=== PATIENT | female | born 1980 | race Caucasian/White ===

== ENCOUNTER 2018-12-21 19:02 | Emergency (ER) | payer OTHER, SELFPAY ==
[2018-12-21 19:10] VITALS: BP 144/87; PULSE 87; RESP 16; TEMP 36.9; O2SAT 100
--- NOTE | 2018-12-21 19:10 | ED_ITS ---
HPI - Animal Bite General Chief Complaint: Extremity Injury, Upper Stated Complaint: bitten by bat Time Seen by Provider: 12/21/18 19:04 Source: patient Mode of arrival: Ambulatory Limitations: no limitations History of Present Illness HPI narrative: 38F non smoker with benign medical history presents with a chief complaint of a bat bite to her left index finger earlier today. The patient works in a voluntary capacity for [employer] and was contacted about an injured bat, she responded to the scene and was unboxing the bat when it had climbed up the side of the box and bit her on the tip of her finger. The bat is in the possession of the patient. Her tetanus is current. She received a series of rabies vaccinations and immune globulin in 1999 when she was working for the [employer]. She is otherwise well and free of complaint. She lives locally, and has local PCP MD complaint: animal bite Onset (ago): hour(s) Animal: bat Description of animal: wild animal Mechanism: bite Location - Extremities: Left: hand Context: provoked Associated symptoms: none Treatments prior to arrival: irrigation and pressure Related Data Patient tetanus UTD: Yes Home Medications Medication Instructions Recorded Confirmed No Known Home Medications 12/27/17 12/27/17 Allergies Allergy/AdvReac Type Severity Reaction Status Date / Time No Known Drug Allergies Allergy Unverified 12/27/17 09:23 Review of Systems Constitutional Constitutional: Denies chills, Denies fatigue, Denies fever(s), Denies frequent falls, Denies lethargy and Denies weakness Eyes Eyes: Denies change in vision, Denies eye discharge, Denies irritation and Denies loss of vision ENT Ears, Nose, Mouth, and Throat: Denies change in voice, Denies dizziness, Denies neck pain, Denies sore throat and Denies throat swelling Cardiovascular Cardiovascular: Denies chest pain, Denies irregular heart rhythm, Denies lightheadedness, Denies palpitations, Denies dyspnea, Denies dyspnea on exertion and Denies orthopnea Respiratory Respiratory: Denies cough, Denies dyspnea, Denies dyspnea on exertion and Denies wheezing Gastrointestinal Gastrointestinal: Denies abdominal pain, Denies change in bowel habits, Denies diarrhea, Denies nausea and Denies vomiting Genitourinary Genitourinary: Denies hematuria, Denies flank pain, Denies urinary incontinence and Denies urinary urgency Musculoskeletal Musculoskeletal: Denies back pain, Denies muscle weakness, Denies neck pain, Denies numbness and Denies tingling Integumentary/Breasts Skin/Breast: Denies pruritus, Denies erythema, Denies rash and Denies wounds Neurologic Neurologic: Denies behavioral changes, Denies confusion, Denies dizziness, Denies frequent falls, Denies loss of vision, Denies numbness, Denies tingling and Denies weakness Psychiatric Psychiatric: Denies anxiety, Denies behavioral changes, Denies confusion, Denies depression, Denies homicidal ideation and Denies suicidal ideation Endocrine Endocrine: Denies fatigue, Denies flushing and Denies palpitations Hematologic/Lymphatic Hematologic/Lymphatic: Denies easy bruising Allergic/Immunologic Allergic/Immunologic: Denies urticaria, Denies throat swelling and Denies wheezing [facility] Medical History Abnormal Pap smear of cervix (Chronic) Anxiety (Chronic) Carpal tunnel syndrome (Chronic) Depression (Resolved 09/2015) HPV in female (Resolved) Hypothyroidism (Chronic) Surgical History History of colposcopy (Resolved) Family History (Updated 11/26/17 @ 11:00 by Jessenia Connell LPN) Father No problems noted. Mother No problems noted. Grandfather No problems noted. Grandmother Cancer Social History Smoking Status: Current every day smoker Tobacco: How many years used: 20 quit status: considering quitting second hand exposure: Yes (my smokes) alcohol intake: former substance use type: does not use Family History Father No problems noted. Mother No problems noted. Grandfather No problems noted. Grandmother Cancer Social History Smoking Status: Current every day smoker Tobacco: How many years used: 20 quit status: considering quitting second hand exposure: Yes (my smokes) alcohol intake: former substance use type: does not use Exam Narrative Exam Narrative: GEN: AOx3 and in mild distress EYES: Pupils are equal, round, and reactive to light and accommodation. Extraoccular muscles are intact bilaterally. There is no subconjunctival hemorrhage or exudate. CHEST: Lungs are clear to auscultation bilaterally and free of wheezes, rales, or rhonchi. Heart rate is regular rhythm, there are no murmurs, clicks, rubs, or gallops. There is no chest wall tenderness. ABD: Abdomen is soft and nontender. There is no guarding or rebound. Bowel sounds are normal in all 4 quadrants. There is no mass or organomegaly. EXT: Full painless ROM of all extremities with no loss of sensation or strength. SKIN: Warm, pink, and dry. No erythema or rash, no bite noted Initial Vital Signs Initial Vital Signs: Vital Signs Temperature 98.5 F 12/21/18 19:10 Pulse Rate 87 12/21/18 19:10 Respiratory Rate 16 12/21/18 19:10 Blood Pressure 144/87 H 12/21/18 19:10 Pulse Oximetry 100 12/21/18 19:10 Course Orders Ordered: Discontinued Medications Rabies Vaccine (Rabavert) 2.5 units IM .ONCE ONE Stop: 12/21/18 19:22 Last Admin: 12/21/18 19:42 Dose: 2.5 units Documented by: ROSAMARIA Consultations Consultation #1: Discussion with [facility] physicians sales representative education courses, she took down patient info. States no IG needed, but full course of vaccines needed. She says state will want the bat for testing and someone will contact patient tomorrow. Patient told all of this info. Vital Signs Vital signs: Vital Signs - 8 hr 12/21/18 19:10 12/21/18 20:02 Temperature 98.5 F Pulse Rate 87 72 Respiratory Rate 16 15 Blood Pressure 144/87 H 143/83 H Pulse Oximetry 100 100 Discharge Plan Departure Patient Disposition: Home Clinical Impression: Bat bite of finger Qualifiers: Encounter type: initial encounter Qualified Code(s): S61.259A - Open bite of unspecified finger without damage to nail, initial encounter Discharge Date/Time: 12/21/18 20:03 Instructions: How to Care for a Wild Animal Bite Activity Restrictions/Additional Instructions: *You have been diagnosed with [bat bite on finger] *What to do: *I have been in close contact with the [facility] Department, they will contact you tomorrow at the phone number provided. *You will need a series of Rabies vaccinations *Day 0 - 12/21 *Day 3 - Sunday 12/24 *Day - 12/28 *Day - 01/04 The state hopes to test the bat, they will call you tomorrow to help coordinate this. If the bat is tested and rabies is ruled out then you will likely be able to stop the series of vaccinations at that point, but please return to [facility] as outline above unless notified by us or the health department Prescriptions: No Action No Known Home Medications RF: 0 Referrals: Mabel Aldrich PA-C [Primary Care Provider] -
[2018-12-21] MEDS: RABIES VACCINE (RABAVERT) 2.5 UNITS SYRINGE IM (19:42)
--- NOTE | 2018-12-21 20:00 | PC.NURSE ---
Pt transports wounded animal to [facility] pt was given a injured baby bat in a box. Pt picked up box and bat brushed fingers. Pt wasn't wearing gloves.
[2018-12-21 20:02] VITALS: BP 143/83; PULSE 72; RESP 15; O2SAT 100
== END 2018-12-21 20:03 | disposition home or self-care (01) ==
PROVIDERS: Emergency Provider Emergency Medicine; Family Provider Naturopath; PCP Physician Assistant
DX: S61.259A Open bite of unspecified finger without damage to nail, initial encounter (principal)
CPT/HCPCS: 90471; 90675; 99282

== ENCOUNTER 2018-12-24 22:18 | Emergency (ER) | payer OTHER, SELFPAY ==
[2018-12-24 22:19] VITALS: BP 128/85; PULSE 81; RESP 16; TEMP 36.7; O2SAT 100; BMI 22.7
--- NOTE | 2018-12-24 22:46 | ED.RECABL ---
HPI - Recheck/Abnormal Lab/Rx General Chief Complaint: Recheck/Abnormal Lab/Rx Stated Complaint: follow up for 2nd rabbies shot Time Seen by Provider: 12/24/18 22:21 Source: patient Mode of arrival: Ambulatory Limitations: no limitations History of Present Illness HPI narrative: 38-year-old female daily smoker returns to the emergency department for her 2nd round of rabies vaccine. She was bit on her left index finger a few days ago by a bat and seen and evaluated here. She had been given her 1st vaccine, she has already the immunoglobulin. She denies any symptoms and feels at her baseline. She had been in contact with the [facility] all day and was told she had 2 options, 1 would be to receive her 2nd shot and then she would do no more. The 2nd option would be to wait until they complete the autopsy of the back tomorrow and wait for the results. She elects to come here and just have it over with. complaint: other Initial visit (ago): day(s) Initial visit for: animal bite Returns today for: needs IV antibiotics Symptoms since prior visit: no new symptoms Context: planned re-check Associated symptoms: none Related Data Home Medications Medication Instructions Recorded Confirmed No Known Home Medications 12/27/17 12/27/17 Allergies Allergy/AdvReac Type Severity Reaction Status Date / Time No Known Drug Allergies Allergy Unverified 12/27/17 09:23 Review of Systems Constitutional Constitutional: Denies chills, Denies fatigue, Denies fever(s), Denies frequent falls, Denies lethargy and Denies weakness Eyes Eyes: Denies change in vision, Denies eye discharge, Denies irritation and Denies loss of vision ENT Ears, Nose, Mouth, and Throat: Denies change in voice, Denies dizziness, Denies neck pain, Denies sore throat and Denies throat swelling Cardiovascular Cardiovascular: Denies chest pain, Denies irregular heart rhythm, Denies lightheadedness, Denies palpitations, Denies dyspnea, Denies dyspnea on exertion and Denies orthopnea Respiratory Respiratory: Denies cough, Denies dyspnea, Denies dyspnea on exertion and Denies wheezing Gastrointestinal Gastrointestinal: Denies abdominal pain, Denies change in bowel habits, Denies diarrhea, Denies nausea and Denies vomiting Genitourinary Genitourinary: Denies hematuria, Denies flank pain, Denies urinary incontinence and Denies urinary urgency Musculoskeletal Musculoskeletal: Denies back pain, Denies muscle weakness, Denies neck pain, Denies numbness and Denies tingling Integumentary/Breasts Skin/Breast: Denies pruritus, Denies erythema, Denies rash and Denies wounds Neurologic Neurologic: Denies behavioral changes, Denies confusion, Denies dizziness, Denies frequent falls, Denies loss of vision, Denies numbness, Denies tingling and Denies weakness Psychiatric Psychiatric: Denies anxiety, Denies behavioral changes, Denies confusion, Denies depression, Denies homicidal ideation and Denies suicidal ideation Endocrine Endocrine: Denies fatigue, Denies flushing and Denies palpitations Hematologic/Lymphatic Hematologic/Lymphatic: Denies easy bruising Allergic/Immunologic Allergic/Immunologic: Denies urticaria, Denies throat swelling and Denies wheezing [facility] Medical History Abnormal Pap smear of cervix (Chronic) Anxiety (Chronic) Carpal tunnel syndrome (Chronic) Depression (Resolved 09/2015) HPV in female (Resolved) Hypothyroidism (Chronic) Surgical History History of colposcopy (Resolved) Family History Father No problems noted. Mother No problems noted. Grandfather No problems noted. Grandmother Cancer Social History Smoking Status: Current every day smoker Tobacco: How many years used: 20 quit status: considering quitting second hand exposure: Yes (my smokes) alcohol intake: former substance use type: does not use Family History Father No problems noted. Mother No problems noted. Grandfather No problems noted. Grandmother Cancer Social History Smoking Status: Current every day smoker Tobacco: How many years used: 20 quit status: considering quitting second hand exposure: Yes (my smokes) alcohol intake: former substance use type: does not use Exam Narrative Exam Narrative: GEN: AOx3 and in mild distress EYES: Pupils are equal, round, and reactive to light and accommodation. Extraoccular muscles are intact bilaterally. There is no subconjunctival hemorrhage or exudate. CHEST: Lungs are clear to auscultation bilaterally and free of wheezes, rales, or rhonchi. Heart rate is regular rhythm, there are no murmurs, clicks, rubs, or gallops. There is no chest wall tenderness. ABD: Abdomen is soft and nontender. There is no guarding or rebound. Bowel sounds are normal in all 4 quadrants. There is no mass or organomegaly. EXT: Full painless ROM of all extremities with no loss of sensation or strength. SKIN: Warm, pink, and dry. No erythema or rash Initial Vital Signs Initial Vital Signs: Vital Signs Temperature 98.1 F 12/24/18 22:19 Pulse Rate 81 12/24/18 22:19 Respiratory Rate 16 12/24/18 22:19 Blood Pressure 128/85 12/24/18 22:19 Pulse Oximetry 100 12/24/18 22:19 Course Orders Ordered: Discontinued Medications Rabies Vaccine (Rabavert) 2.5 units IM .ONCE ONE Stop: 12/24/18 22:22 Vital Signs Vital signs: Vital Signs - 8 hr 12/24/18 22:19 Temperature 98.1 F Pulse Rate 81 Respiratory Rate 16 Blood Pressure 128/85 Pulse Oximetry 100 Discharge Plan Departure Patient Disposition: Home Clinical Impression: Suspected rabies Activity Restrictions/Additional Instructions: *You have been diagnosed with [bat bite, possible rabies exposure] *What to do: *Take medications as directed * per your discussion with [facility] you will need no more rabies shots. *Return to ER if you should have any new, worsening or concerning symptoms Prescriptions: No Action No Known Home Medications RF: 0 Referrals: Mabel Aldrich PA-C [Primary Care Provider] -
[2018-12-24] MEDS: RABIES VACCINE (RABAVERT) 2.5 UNITS SYRINGE IM (23:11)
[2018-12-24 23:24] VITALS: BP 98/84; PULSE 84; RESP 16; O2SAT 99
== END 2018-12-24 23:24 | disposition home or self-care (01) ==
PROVIDERS: Emergency Provider Emergency Medicine; Family Provider Naturopath; PCP Physician Assistant
DX: Z23 Encounter for immunization (principal); S61.259A Open bite of unspecified finger without damage to nail, initial encounter
CPT/HCPCS: 90471; 90675; 99281; 99282

== ENCOUNTER → 2019-12-13 07:10 | Outpatient (CLI) | payer OTHER, SELFPAY ==
[2019-12-13 08:27] LABS: Add Manual Diff / Slide Review NO; Basophils Absolute Auto 0 /uL (0-100); Basophils Percent Auto 0.5 % (0-2); Eosinophils Absolute Auto 300 /uL (0-450); Eosinophils Percent Auto 3.4 % (2-4); Hematocrit 41.2 % (36-46); Hemoglobin 13.7 g/dL (12.0-16.0); Lymphocytes Absolute Auto 2600 /uL (1100-4500); Mean Corpuscular HGB Conc 33.3 % (30-36); Mean Corpuscular Hemoglobin 28.9 PG (26-34); Mean Corpuscular Volume 86.9 fL (80-100); Monocytes Absolute Auto 900 /uL (0-900); Monocytes Percent Auto 11.1 % (3-14); Neutrophils Absolute Auto 4300 /uL (1500-7000); Platelet Count 260 X10^3/uL (150-400); Red Blood Cell Count 4.74 X10^6/uL (4.0-5.2); Red Cell Distribution Width 13.3 % (11.6-14.8); White Blood Cell Count 8.2 X10^3/uL (4.5-11.0)
[2019-12-13 09:21] LABS: Alanine Aminotransferase 10 IU/L (<35); Albumin 4.1 g/dL (3.5-5.0); Albumin Globulin Ratio 1.7 (1.0-2.8); Alkaline Phosphatase 89 U/L (38-126); Aspartate Aminotransferase 17 IU/L (14-36); BUN Creatinine Ratio 11.6 (6-22); Bilirubin Total 0.9 mg/dL (0.2-1.3); Blood Urea Nitrogen 8 mg/dL (7-17); Calcium 9.4 mg/dL (8.4-10.2); Carbon Dioxide 25 mmol/L (22-32); Chloride 106 mmol/L (98-107); Cholesterol 153 mg/dL (140-199); Estimated Glomerular Filt Rate > 60.0 mL/min (>60); Globulin 2.4 g/dL (1.7-4.1); Glucose 82 mg/dL (70-100); HDL Cholesterol 56 mg/dL (40-60); HEMOLYSIS < 15 (0-50); LDL Cholesterol Calculated 84 mg/dL (<100); Sodium 139 mmol/L (137-145); Total Protein 6.5 g/dL (6.3-8.2); Triglycerides 66 mg/dL (35-150)
[2019-12-13 09:30] LABS: Free T4, Direct Thyroxine 1.16 ng/dL (0.78-2.19)
[2019-12-13 09:44] LABS: Thyroid Stimulating Hormone 2.41 uIU/mL (0.47-4.68)
[2019-12-14 08:08] LABS: Thyroid Peroxidase Antibodies <9 IU/mL (0-34)
[2019-12-14 19:00] LABS: Anti Thyroglobulin Antibody <1.0 IU/mL (0.0-0.9)
== END ==
PROVIDERS: Family Provider Naturopath; PCP Naturopath; Referring Provider Naturopath; Visit Provider Naturopath
DX: Z00.00 Encounter for general adult medical examination without abnormal findings (principal); E06.3 Autoimmune thyroiditis
CPT/HCPCS: 36415; 80053; 80061; 84439; 84443; 84481; 85025; 86376; 86800

== ENCOUNTER → 2020-06-13 07:55 | Outpatient (CLI) | payer OTHER, SELFPAY ==
[2020-06-13] MEDS: COVID-19 VACC #1, MRNA(MOD) 100 MCG/0.5 ML VIAL IM (08:00)
== END ==
PROVIDERS: Family Provider Naturopath; PCP Naturopath; Visit Provider Internal Medicine
DX: Z23 Encounter for immunization (principal)
CPT/HCPCS: 0011A; 91301

== ENCOUNTER → 2020-07-11 09:54 | Outpatient (CLI) | payer OTHER, SELFPAY ==
[2020-07-11] MEDS: COVID-19 VACC #2, MRNA(MOD) 100 MCG/0.5 ML VIAL IM (10:01)
== END ==
PROVIDERS: Family Provider Naturopath; PCP Naturopath; Visit Provider Internal Medicine
DX: Z23 Encounter for immunization (principal)
CPT/HCPCS: 0012A; 91301

== ENCOUNTER → 2020-07-11 10:16 | Outpatient (CLI) | payer OTHER, SELFPAY ==
[2020-07-11 11:02] LABS: Add Manual Diff / Slide Review NO; Basophils Absolute Auto 0 /uL (0-100); Basophils Percent Auto 0.5 % (0-2); Eosinophils Absolute Auto 300 /uL (0-450); Eosinophils Percent Auto 3.6 % (2-4); Hematocrit 43.4 % (36-46); Hemoglobin 14.3 g/dL (12.0-16.0); Lymphocytes Absolute Auto 1900 /uL (1100-4500); Lymphocytes Percent Auto 22.5 % (25-40); Mean Corpuscular Hemoglobin 29.4 PG (26-34); Mean Corpuscular Volume 89.1 fL (80-100); Monocytes Absolute Auto 900 /uL (0-900); Monocytes Percent Auto 10.5 % (3-14); Neutrophils Absolute Auto 5300 /uL (1500-7000); Neutrophils Percent Auto 62.9 % (50-75); Platelet Count 263 X10^3/uL (150-400); Red Blood Cell Count 4.87 X10^6/uL (4.0-5.2); Red Cell Distribution Width 13.4 % (11.6-14.8); White Blood Cell Count 8.4 X10^3/uL (4.5-11.0)
[2020-07-11 11:48] LABS: Lithium 0.5 mmol/L (0.6-1.2)
== END ==
PROVIDERS: Family Provider Naturopath; PCP Naturopath; Referring Provider Registered Nurse; Visit Provider Registered Nurse
DX: F32.1 Major depressive disorder, single episode, moderate (principal); F43.10 Post-traumatic stress disorder, unspecified
CPT/HCPCS: 36415; 80178; 85025

== ENCOUNTER → 2021-02-14 16:52 | Outpatient (CLI) | payer OTHER, SELFPAY | PROVIDERS: Family Provider Naturopath; PCP Naturopath; Visit Provider Physician Assistant | DX: J02.9 Acute pharyngitis, unspecified (principal) | CPT/HCPCS: 87070; 87077; 87147 ==

== ENCOUNTER → 2021-04-20 08:21 | Outpatient (CLI) | payer OTHER, SELFPAY ==
[2021-04-20 08:46] LABS: Add Manual Diff / Slide Review NO; Basophils Absolute Auto 0 /uL (0-100); Basophils Percent Auto 0.6 % (0-2); Eosinophils Absolute Auto 400 /uL (0-450); Hematocrit 40.7 % (36-46); Hemoglobin 13.6 g/dL (12.0-16.0); Lymphocytes Absolute Auto 2200 /uL (1100-4500); Lymphocytes Percent Auto 27.9 % (25-40); Mean Corpuscular HGB Conc 33.4 % (30-36); Monocytes Absolute Auto 800 /uL (0-900); Monocytes Percent Auto 9.8 % (3-14); Neutrophils Absolute Auto 4400 /uL (1500-7000); Neutrophils Percent Auto 56.7 % (50-75); Platelet Count 260 X10^3/uL (150-400); Red Blood Cell Count 4.68 X10^6/uL (4.0-5.2); Red Cell Distribution Width 13.6 % (11.6-14.8); White Blood Cell Count 7.8 X10^3/uL (4.5-11.0)
[2021-04-20 09:00] LABS: Alanine Aminotransferase 10 IU/L (<35); Albumin 4.1 g/dL (3.5-5.0); Albumin Globulin Ratio 1.6 (1.0-2.8); Alkaline Phosphatase 67 U/L (38-126); Aspartate Aminotransferase 17 IU/L (14-36); BUN Creatinine Ratio 13.6 (6-22); Bilirubin Total 0.5 mg/dL (0.2-1.3); Blood Urea Nitrogen 9 mg/dL (7-17); Calcium 9.4 mg/dL (8.4-10.2); Carbon Dioxide 23 mmol/L (22-32); Chloride 112 mmol/L (98-107); Cholesterol 153 mg/dL (140-199); Estimated Glomerular Filt Rate > 60.0 mL/min (>60); Globulin 2.5 g/dL (1.7-4.1); Glucose 97 mg/dL (70-100); HDL Cholesterol 54 mg/dL (40-60); HEMOLYSIS < 15 (0-50); LDL Cholesterol Calculated 89 mg/dL (<100); Sodium 139 mmol/L (137-145); Total Protein 6.6 g/dL (6.3-8.2); Triglycerides 49 mg/dL (35-150)
[2021-04-20 09:01] LABS: Lithium 0.5 mmol/L (0.6-1.2)
[2021-04-20 09:26] LABS: Thyroid Stimulating Hormone 3.87 uIU/mL (0.47-4.68)
== END ==
PROVIDERS: Family Provider Naturopath; PCP Naturopath; Referring Provider Registered Nurse; Visit Provider Registered Nurse
DX: Z00.00 Encounter for general adult medical examination without abnormal findings (principal); F31.81 Bipolar II disorder; F43.10 Post-traumatic stress disorder, unspecified; Z51.81 Encounter for therapeutic drug level monitoring
CPT/HCPCS: 36415; 80053; 80061; 80178; 84443; 85025

== ENCOUNTER → 2023-02-05 | Outpatient (CLI) | payer OTHER, SELFPAY ==
--- NOTE | 2023-02-05 | DI.MG.S_ITS ---
BILATERAL DIGITAL SCREENING MAMMOGRAM 3D/2D WITH CAD: 02/05/2023 CLINICAL: Routine screening. Routine screening. Family history of breast cancer. No prior exams were available for comparison. Both breasts are heterogeneously dense, which may obscure small masses (category c / 51-75% glandular tissue). Current study was also evaluated with a Computer Aided Detection (CAD) system. There is a focal asymmetry in the left breast central to the nipple in the retroareolar region. No other significant masses, calcifications, or other findings are seen in either breast. IMPRESSION: INCOMPLETE: NEEDS ADDITIONAL IMAGING EVALUATION The focal asymmetry in the left breast is indeterminate. Additional views with possible ultrasound are recommended. Based on the Tyrer Cuzick model (a risk assessment model) the patient's lifetime risk is 18.1% and her 10 year risk is 2.6%. According to the ACR, ACS, and NCCN guidelines, an annual breast MRI exam along with mammogram is recommended if the patient's lifetime risk is 20% or greater. This exam was interpreted at Station ID: [id number]. NOTE: For mammograms, a report in lay terms will be sent to the patient. Approximately 15% of breast malignancies will not be visualized mammographically. In the management of a palpable breast mass, a negative mammogram must not discourage biopsy of a clinically suspicious lesion. Electronically Signed By: Christiano Yuan M.D. lc/:02/10/2023 07:51:26 letter sent: Additional Imaging Needed ACR BI-RADS Category 0: Incomplete [id number]
== END ==
LOC: MAMMO 09:49
PROVIDERS: Family Provider Naturopath; PCP Naturopath; Referring Provider Naturopath; Visit Provider Naturopath
DX: Z12.31 Encounter for screening mammogram for malignant neoplasm of breast (principal); Z80.3 Family history of malignant neoplasm of breast
CPT/HCPCS: 77063; 77067

== ENCOUNTER → 2023-02-21 06:50 | Outpatient (CLI) | payer OTHER, SELFPAY ==
[2023-02-21 07:57] LABS: Add Manual Diff / Slide Review NO; Basophils Absolute Auto 0 /uL (0-100); Basophils Percent Auto 0.5 % (0-2); Eosinophils Absolute Auto 300 /uL (0-450); Eosinophils Percent Auto 4.5 % (2-4); Hematocrit 41.2 % (36-46); Hemoglobin 14.1 g/dL (12.0-16.0); Lymphocytes Absolute Auto 2300 /uL (1100-4500); Lymphocytes Percent Auto 29.9 % (25-40); Mean Corpuscular HGB Conc 34.1 % (30-36); Mean Corpuscular Hemoglobin 29.3 PG (26-34); Mean Corpuscular Volume 85.9 fL (80-100); Monocytes Absolute Auto 800 /uL (0-900); Monocytes Percent Auto 10.8 % (3-14); Neutrophils Absolute Auto 4200 /uL (1500-7000); Neutrophils Percent Auto 54.3 % (50-75); Platelet Count 291 X10^3/uL (150-400); Red Blood Cell Count 4.79 X10^6/uL (4.0-5.2); Red Cell Distribution Width 13.5 % (11.6-14.8); White Blood Cell Count 7.7 X10^3/uL (4.5-11.0)
[2023-02-21 08:15] LABS: Alanine Aminotransferase 17 IU/L (<35); Albumin 4.1 g/dL (3.5-5.0); Albumin Globulin Ratio 1.4 (1.0-2.8); Alkaline Phosphatase 80 U/L (38-126); Aspartate Aminotransferase 22 IU/L (14-36); BUN Creatinine Ratio 10.1 (6-22); Bilirubin Total 0.5 mg/dL (0.2-1.3); Blood Urea Nitrogen 7 mg/dL (7-17); Calcium 9.5 mg/dL (8.4-10.2); Carbon Dioxide 25 mmol/L (22-32); Chloride 108 mmol/L (98-107); Cholesterol 170 mg/dL (140-199); Estimated Glomerular Filt Rate > 60 mL/min (>60); Globulin 2.9 g/dL (1.7-4.1); Glucose 96 mg/dL (70-100); HDL Cholesterol 56 mg/dL (40-60); HEMOLYSIS < 15 (0-50); LDL Cholesterol Calculated 103 mg/dL (<100); Potassium 4.2 mmol/L (3.4-5.1); Sodium 139 mmol/L (137-145); Triglycerides 56 mg/dL (35-150)
[2023-02-21 08:41] LABS: Thyroid Stimulating Hormone 2.12 uIU/mL (0.47-4.68)
== END ==
PROVIDERS: Family Provider Naturopath; PCP Naturopath; Referring Provider Naturopath; Visit Provider Naturopath
DX: Z00.00 Encounter for general adult medical examination without abnormal findings (principal)
CPT/HCPCS: 36415; 80053; 80061; 84443; 85025

== ENCOUNTER → 2023-02-28 08:45 | Outpatient (CLI) | payer OTHER, SELFPAY ==
--- NOTE | 2023-02-28 | DI.MG.S_ITS ---
UNILATERAL LEFT DIGITAL DIAGNOSTIC MAMMOGRAM 3D/2D WITH ADDITIONAL VIEWS: 02/28/2023 CLINICAL: Additional evaluation requested from prior study. Comparison is made to exam dated: 02/05/2023 mammogram - [facility]. The left breast is heterogeneously dense, which may obscure small masses (category c / 51-75% glandular tissue). The focal asymmetry in the left breast central to the nipple in the retroareolar region is not seen in additional views. No other significant masses or calcifications are seen in the breast. IMPRESSION: BENIGN The focal asymmetry in the left breast seen on the screening mammogram likely respresents superimposed fibroglandular tissue and is benign. There is no mammographic evidence of malignancy. A 1 year screening mammogram is recommended. Based on the Tyrer Cuzick model (a risk assessment model) the patient's lifetime risk is 18.6% and her 10 year risk is 2.6%. According to the ACR, ACS, and NCCN guidelines, an annual breast MRI exam along with mammogram is recommended if the patient's lifetime risk is 20% or greater. This exam was interpreted at Station ID: [id number]. NOTE: For mammograms, a report in lay terms will be sent to the patient. Approximately 15% of breast malignancies will not be visualized mammographically. In the management of a palpable breast mass, a negative mammogram must not discourage biopsy of a clinically suspicious lesion. Electronically Signed By: Chiara Lzaar M.D. lk/:02/28/2023 09:23:04 letter sent: Normal Exam ACR BI-RADS Category 2: Benign Finding(s) 3342F
== END ==
PROVIDERS: Family Provider Naturopath; PCP Naturopath; Referring Provider Naturopath; Visit Provider Naturopath
DX: R92.8 Other abnormal and inconclusive findings on diagnostic imaging of breast (principal)
CPT/HCPCS: 77065; G0279

== ENCOUNTER → 2023-03-03 13:13 | Outpatient (CLI) | payer OTHER, SELFPAY ==
--- NOTE | 2023-03-03 | DI.RAD.S_ITS ---
PROCEDURE: XR LUMBAR SPINE 2-3V INDICATIONS: BACK PAIN TECHNIQUE: 3 views of the lumbar spine were acquired. COMPARISON: None. FINDINGS: Bones: 5 [id number] vertebrae are present. There is normal bony alignment. No acute vertebral body compression fractures. No suspicious bony lesions. Multilevel spondylitic changes most pronounced at L4-5 and L5-S1. Associated facet arthropathy. Soft tissues: Overlying bowel gas pattern is normal. No suspicious soft tissue calcifications. IMPRESSION: Lumbar spine without acute fracture or traumatic malalignment. Mild multilevel lower lumbar spondylosis. Dictated by: López Guy M.D. on 03/03/2023 at 16:15 Approved by: López Guy M.D. on 03/03/2023 at 16:16
== END ==
PROVIDERS: Family Provider Naturopath; PCP Naturopath; Referring Provider Naturopath; Visit Provider Naturopath
DX: M47.816 Spondylosis without myelopathy or radiculopathy, lumbar region (principal); M47.817 Spondylosis without myelopathy or radiculopathy, lumbosacral region; M54.50 Low back pain, unspecified
CPT/HCPCS: 72100

== ENCOUNTER → 2023-03-17 18:35 | Outpatient (CLI) | payer OTHER, SELFPAY ==
--- NOTE | 2023-03-17 | DI.MRI.S_ITS ---
PROCEDURE: MR LUMBAR SPINE WO CON INDICATIONS: Intervertebral disc disorders lumbar region TECHNIQUE: Noncontrast sagittal T1 spin echo and T2 fast echo, sagittal STIR, and T2 fast spin echo through the lumbar spine. In cases with scoliosis, additional coronal T2 fast spin echo may be performed. COMPARISON: [facility], CR, XR LUMBAR SPINE 2-3V, 03/03/2023, 13:18. FINDINGS: Image quality: Excellent. Alignment and Curvature: There is normal bony alignment. Bone Marrow: Marrow is of normal overall signal. No acute vertebral body compression fractures. Spinal Cord: Conus medullaris terminates at the T12-L1 level. Visualized cord demonstrates normal signal and size. Paraspinous Soft Tissues: No paravertebral masses. T12-L1: Normal appearance. L1-L2: Normal appearance. L2-L3: Normal appearance. L3-L4: Normal appearance. L4-L5: There is a large broad-based disc protrusion which measures approximately 1.3 x 1.8 x 0.9 cm. There is a degree of impingement of the bilateral L5 nerve roots in the lateral recesses as well as the right S1 nerve root in the right lateral recess, as well. There is moderate stenosis of the central canal. There is no significant foraminal narrowing. L5-S1: Normal appearance. IMPRESSION: A large broad-based disc protrusion at L4-L5 impinges on the bilateral L5 nerve roots in the lateral recesses as well as the right S1 nerve root in the right lateral recess. There is moderate central canal stenosis. Dictated by: Barrett Bucio M.D. on 03/18/2023 at 12:19 Approved by: Barrett Bucio M.D. on 03/18/2023 at 12:22
== END ==
PROVIDERS: Family Provider Naturopath; PCP Naturopath; Referring Provider Chiropractor; Visit Provider Chiropractor
DX: M51.16 Intervertebral disc disorders with radiculopathy, lumbar region (principal); M54.51 Vertebrogenic low back pain; M48.061 Spinal stenosis, lumbar region without neurogenic claudication
CPT/HCPCS: 72148

== ENCOUNTER → 2023-06-01 16:40 | Outpatient (CLI) | payer OTHER, SELFPAY ==
--- NOTE | 2023-06-01 | DI.MRI.S_ITS ---
PROCEDURE: MR LUMBAR SPINE WO/W CON INDICATIONS: Radiculopathy, lumbar region TECHNIQUE: Noncontrast sagittal T1 spin echo and T2 fast spin echo, sagittal STIR, axial T1 and T2 fast spin echo through the lumbar spine. In cases with scoliosis, additional coronal T2 fast spin echo may be performed. After the administration of contrast, sagittal and axial T1 spin echo with fat saturation through the lumbar spine. COMPARISON: [facility], , MR LUMBAR SPINE WO CON, 03/17/2023, 18:50. FINDINGS: Image quality: Excellent. Alignment and curvature: There is normal bony alignment. Marrow: Mild degenerative endplate changes at L4-5, Modic type 1. Marrow is of normal overall signal. No acute vertebral body compression fractures. No suspicious marrow enhancement. Spinal cord: Conus medullaris terminates at the T12-L1 level. Visualized spinal cord demonstrates normal signal, without suspicious enhancement. Paraspinous soft tissues: No paravertebral masses or abnormal enhancement. Postsurgical changes within the paraspinal soft tissues posteriorly at L4-5 are noted. T12-L1: Normal appearance. L1-L2: Normal appearance. L2-L3: Normal appearance. L3-L4: Normal appearance. L4-L5: Disc desiccation height loss. Large broad-based disc extrusion is redemonstrated and similar appearance to prior. There is abutment and possible impingement of the descending L5 nerve roots bilaterally. Abutment of the descending right S1 nerve root. Stable moderate central canal stenosis. No neural foraminal stenosis. L5-S1: Mild facet arthropathy. No central canal or neural foraminal stenosis. IMPRESSION: No significant change in broad-based disc extrusion L4-5 as described above. There appears to be postsurgical changes within the posterior paraspinal soft tissues, recommend clinical correlation. Dictated by: Nilesh Washburn M.D. on 06/02/2023 at 9:03 Approved by: Nilesh Washburn M.D. on 06/02/2023 at 9:12
== END ==
PROVIDERS: Family Provider Naturopath; PCP Naturopath; Referring Provider Neurological Surgery; Visit Provider Neurological Surgery
DX: M51.16 Intervertebral disc disorders with radiculopathy, lumbar region (principal); M47.27 Other spondylosis with radiculopathy, lumbosacral region
CPT/HCPCS: 72158; A9579

== ENCOUNTER → 2024-03-16 08:15 | Outpatient (CLI) | payer OTHER, SELFPAY ==
--- NOTE | 2024-03-16 | DI.MG.S_ITS ---
BILATERAL DIGITAL SCREENING MAMMOGRAM 3D/2D WITH CAD: 03/16/2024 CLINICAL: Routine screening. Family history of breast cancer. Comparison is made to exam dated: 02/05/2023 mammogram - [facility]. The breasts are heterogeneously dense, which may obscure small masses (category c / 51-75% glandular tissue). Current study was also evaluated with a Computer Aided Detection (CAD) system. No significant masses, calcifications, or other findings are seen in either breast. There has been no significant interval change. IMPRESSION: NEGATIVE There is no mammographic evidence of malignancy. A 1 year screening mammogram is recommended. Based on the Tyrer Cuzick model (a risk assessment model) the patient's lifetime risk is 18.5% and her 10 year risk is 2.9%. According to the ACR, ACS, and NCCN guidelines, an annual breast MRI exam along with mammogram is recommended if the patient's lifetime risk is 20% or greater. This exam was interpreted at Station ID: [id number]. NOTE: For mammograms, a report in lay terms will be sent to the patient. Approximately 15% of breast malignancies will not be visualized mammographically. In the management of a palpable breast mass, a negative mammogram must not discourage biopsy of a clinically suspicious lesion. Electronically Signed By: López urbano/jama:03/17/2024 08:56:39 letter sent: Normal Exam ACR BI-RADS Category 1: Negative
== END ==
PROVIDERS: Family Provider Naturopath; PCP Naturopath; Referring Provider Naturopath; Visit Provider Naturopath
DX: Z12.31 Encounter for screening mammogram for malignant neoplasm of breast (principal); Z80.3 Family history of malignant neoplasm of breast; R92.333 Mammographic heterogeneous density, bilateral breasts
CPT/HCPCS: 77063; 77067

== ENCOUNTER → 2024-07-20 09:27 | Outpatient (CLI) | payer OTHER, SELFPAY ==
[2024-07-20 10:19] LABS: Add Manual Diff / Slide Review NO; Basophils Absolute Auto 100 /uL (0-100); Basophils Percent Auto 0.8 % (0-2); Eosinophils Absolute Auto 300 /uL (0-450); Eosinophils Percent Auto 3.4 % (2-4); Hematocrit 39.1 % (36-46); Lymphocytes Absolute Auto 1900 /uL (1100-4500); Lymphocytes Percent Auto 22.6 % (25-40); Mean Corpuscular HGB Conc 33.1 % (30-36); Mean Corpuscular Hemoglobin 25.9 PG (26-34); Monocytes Absolute Auto 800 /uL (0-900); Neutrophils Absolute Auto 5200 /uL (1500-7000); Neutrophils Percent Auto 63.2 % (50-75); Platelet Count 292 X10^3/uL (150-400); Red Blood Cell Count 5.01 X10^6/uL (4.0-5.2); Red Cell Distribution Width 17.4 % (11.6-14.8); White Blood Cell Count 8.3 X10^3/uL (4.5-11.0)
[2024-07-20 10:39] LABS: Alanine Aminotransferase 16 IU/L (<35); Albumin 4.4 g/dL (3.5-5.0); Albumin Globulin Ratio 1.8 (1.0-2.8); Alkaline Phosphatase 83 U/L (38-126); Aspartate Aminotransferase 19 IU/L (14-36); BUN Creatinine Ratio 14.1 (6-22); Bilirubin Total 0.4 mg/dL (0.2-1.3); Blood Urea Nitrogen 10 mg/dL (7-17); Calcium 9.4 mg/dL (8.4-10.2); Carbon Dioxide 23 mmol/L (22-32); Chloride 109 mmol/L (98-107); Cholesterol 173 mg/dL (140-199); Estimated Glomerular Filt Rate > 60 mL/min (>60); Globulin 2.4 g/dL (1.7-4.1); Glucose 91 mg/dL (70-99); HDL Cholesterol 57 mg/dL (40-60); HEMOLYSIS < 15 (0-50); LDL Cholesterol Calculated 104 mg/dL (<100); Potassium 4.5 mmol/L (3.4-5.1); Sodium 140 mmol/L (137-145); Total Protein 6.8 g/dL (6.3-8.2); Triglycerides 59 mg/dL (35-150)
[2024-07-20 11:11] LABS: Thyroid Stimulating Hormone 1.24 uIU/mL (0.47-4.68)
[2024-07-20 11:15] LABS: Ferritin 5 ng/mL (6-137)
== END ==
PROVIDERS: Family Provider Naturopath; PCP Naturopath; Referring Provider Naturopath; Visit Provider Naturopath
DX: Z00.00 Encounter for general adult medical examination without abnormal findings (principal); E61.1 Iron deficiency; R53.83 Other fatigue
CPT/HCPCS: 36415; 80053; 80061; 82728; 84443; 85025

== ENCOUNTER → 2024-09-21 10:31 | Outpatient (CLI) | payer OTHER, SELFPAY ==
[2024-09-21 12:27] LABS: Add Manual Diff / Slide Review NO; Basophils Absolute Auto 0 /uL (0-100); Basophils Percent Auto 0.6 % (0-2); Eosinophils Absolute Auto 200 /uL (0-450); Eosinophils Percent Auto 3.5 % (2-4); Lymphocytes Absolute Auto 2000 /uL (1100-4500); Lymphocytes Percent Auto 29.6 % (25-40); Mean Corpuscular HGB Conc 33.3 % (30-36); Mean Corpuscular Hemoglobin 27.5 PG (26-34); Mean Corpuscular Volume 82.7 fL (80-100); Monocytes Absolute Auto 800 /uL (0-900); Monocytes Percent Auto 12.1 % (3-14); Neutrophils Absolute Auto 3700 /uL (1500-7000); Neutrophils Percent Auto 54.2 % (50-75); Platelet Count 323 X10^3/uL (150-400); Red Blood Cell Count 5.08 X10^6/uL (4.0-5.2); Red Cell Distribution Width 15.8 % (11.6-14.8); White Blood Cell Count 6.9 X10^3/uL (4.5-11.0)
[2024-09-21 13:31] LABS: Ferritin 12 ng/mL (6-137)
== END ==
PROVIDERS: Family Provider Naturopath; PCP Naturopath; Referring Provider Naturopath; Visit Provider Naturopath
DX: E61.1 Iron deficiency (principal)
CPT/HCPCS: 36415; 82728; 85025

== ENCOUNTER → 2024-12-19 15:01 | Outpatient (CLI) | payer OTHER, SELFPAY ==
[2024-12-19 16:25] LABS: Hematocrit 41.8 % (36-46); Hemoglobin 14.3 g/dL (12.0-16.0); Mean Corpuscular HGB Conc 34.3 % (30-36); Mean Corpuscular Hemoglobin 29.5 PG (26-34); Mean Corpuscular Volume 86.1 fL (80-100); Platelet Count 272 X10^3/uL (150-400)
[2024-12-19 17:52] LABS: Ferritin 86 ng/mL (6-137)
== END ==
PROVIDERS: Family Provider Naturopath; PCP Naturopath; Referring Provider Naturopath; Visit Provider Naturopath
DX: E61.1 Iron deficiency (principal)
CPT/HCPCS: 36415; 82728; 85027

== ENCOUNTER → 2025-02-01 12:30 | Outpatient (CLI) | payer OTHER, SELFPAY ==
[2025-02-01 13:42] LABS: Add Manual Diff / Slide Review NO; Hematocrit 42.7 % (36-46); Hemoglobin 14.6 g/dL (12.0-16.0); Lymphocytes Absolute Auto 2200 /uL (1100-4500); Mean Corpuscular HGB Conc 34.2 % (30-36); Mean Corpuscular Hemoglobin 29.7 PG (26-34); Mean Corpuscular Volume 86.8 fL (80-100); Platelet Count 283 X10^3/uL (150-400)
[2025-02-01 14:17] LABS: Free T3, Triiodothyronine Free 3.01 pg/mL (2.77-5.27)
[2025-02-01 14:32] LABS: TSH w/ Reflex to FT4 0.72 uIU/mL (0.47-4.68); Thyroid Stimulating Hormone 0.723 uIU/mL (0.47-4.68)
[2025-02-01 14:35] LABS: Ferritin 72 ng/mL (6-137)
[2025-02-03 14:08] LABS: Anti Thyroglobulin Antibody <1.0 IU/mL (0.0-0.9)
== END ==
PROVIDERS: Family Provider Naturopath; PCP Naturopath; Referring Provider Naturopath; Visit Provider Naturopath
DX: D72.829 Elevated white blood cell count, unspecified (principal); E04.9 Nontoxic goiter, unspecified; E61.1 Iron deficiency; R53.83 Other fatigue
CPT/HCPCS: 36415; 82728; 84443; 84481; 85025; 86376; 86800